=== PATIENT | male | born 1940 | race Asian ===

== ENCOUNTER 2021-10-28 11:01 | Outpatient (RCR) | payer MEDICARE, SELFPAY ==
[2021-10-28] MEDS: FAMOTIDINE 20 MG TABLET PO (11:29)
[2021-10-28] MEDS: diphenhydrAMINE HCl CAP 25 MG CAPSULE PO (11:29)
[2021-10-28] MEDS: ACETAMINOPHEN 325 MG TABLET 650 MG PO (11:29)
[2021-10-28 11:32] VITALS: BP 137/69; PULSE 72; TEMP 36.8; O2SAT 100
[2021-10-28 13:00] VITALS: BP 130/56; PULSE 66; O2SAT 100
== END 2021-10-28 16:00 ==
LOC: AMCINF 11:01
PROVIDERS: PCP Internal Medicine; Visit Provider Internal Medicine Hematology & Oncology
DX: U07.1 COVID-19 (principal); I10 Essential (primary) hypertension; I25.10 Atherosclerotic heart disease of native coronary artery without angina pectoris; J44.9 Chronic obstructive pulmonary disease, unspecified; E11.9 Type 2 diabetes mellitus without complications
CPT/HCPCS: A9270; M0247; Q0247